=== PATIENT | male | born 1985 | race Caucasian/White ===

== ENCOUNTER 2021-01-07 09:58 | Inpatient (IN) | payer OTHER ==
[~2021-01-07] VITALS: Ht 198.1 cm; Wt 93.3 kg
[2021-01-07 11:10] LABS: COVID AG,FIA SOURCE NASOPHARYNGEAL
[2021-01-07 11:13] LABS: ANION GAP 7 mmol/L (8-16); CALCIUM, TOTAL 8.9 mg/dL (8.8-10.5); CARBON DIOXIDE 26 mmol/L (22-29); CHLORIDE 102 mmol/L (98-107); GLOMERULAR FILTR. RATE CALC > 60 mL/min (>60); GLUCOSE,RANDOM 127 mg/dL (70-110); POTASSIUM 3.9 mmol/L (3.5-5.1); SODIUM SERUM 135 mmol/L (136-145); UREA NITROGEN, BLOOD 8 mg/dL (7-18)
[2021-01-07 11:14] LABS: BASOPHILS % (AUTO) 0.4 % (0.0-2.0); EOSINOPHILS % (AUTO) 1.3 % (1.0-6.0); HEMATOCRIT 39.5 % (41-53); LYMPHOCYTES # (AUTO) 0.8 K/uL (1.0-4.8); LYMPHOCYTES % (AUTO) 18.2 % (22.0-44.0); MEAN CORPUSCULAR HEMOGLOBIN 27.4 pg (26.0-34.0); MEAN CORPUSCULAR HGB CONC 32.9 G/dL (31.0-37.0); MEAN CORPUSCULAR VOLUME 84 fL (80-100); MONOCYTES # (AUTO) 0.3 K/uL (0.1-1.0); MONOCYTES % (AUTO) 6.7 % (2.0-9.0); NEUTROPHILS # (AUTO) 3.4 K/uL (1.8-7.7); NEUTROPHILS % (AUTO) 73.4 % (40.0-70.0); PLATELET COUNT (AUTO) 198 K/uL (150-450); RED BLOOD CELL COUNT(AUTO) 4.74 MIL/uL (4.50-5.90); RED CELL DISTRIBUTION WIDTH 16.2 % (11.5-14.5)
[2021-01-07 11:18] LABS: ALANINE AMINOTRANSFERASE 19 U/L (12-78); ALBUMIN 3.6 g/dL (3.4-5.0); ALKALINE PHOSPHATASE 127 U/L (46-116); ASPARTATE AMINOTRANSFERASE 19 U/L (15-37); BILIRUBIN,TOTAL 0.3 mg/dL (0.1-1.0)
[2021-01-07] MEDS ORDERED: ACETAMINOPHEN 325 MG TABLET PO PRN (12:15)
[2021-01-07] MEDS ORDERED: LOPERAMIDE HCL 2 MG/15 ML SUSPENSION UDCUP PO PRN (15:45)
[2021-01-07] MEDS ORDERED: DICYCLOMINE HCL 10 MG CAPSULE PO PRN (15:45)
[2021-01-07] MEDS ORDERED: MAG HYDROX/AL HYDROX/SIMETH ES 30 ML SUSPENSION UDCUP PO PRN (15:45)
[2021-01-07] MEDS ORDERED: CloNIDine HCL 0.1 MG TABLET PO PRN (15:45)
[2021-01-07 16:00] VITALS: BP 125/67
[2021-01-07 17:09] VITALS: BP 129/71
[2021-01-07] MEDS: CloNIDine HCL 0.1 MG TABLET PO SCH ×2 (17:22→20:38)
[2021-01-07] MEDS: SODIUM CHLORIDE 0.45% 1,000 ML IV SCH (17:22)
[2021-01-07 19:40] VITALS: BP 123/66
[2021-01-07] MEDS: IBUPROFEN 600 MG TABLET PO PRN (20:38)
[2021-01-07] MEDS: MIRTAZAPINE 15 MG TABLET PO SCH (20:38)
[2021-01-07 21:08] VITALS: BP 133/64
[2021-01-07] MEDS: TraZODone HCL 50 MG TABLET PO PRN (21:44)
[2021-01-07] MEDS: LORazepam 1 MG TABLET PO PRN (21:44)
[2021-01-07] MEDS ORDERED: DiphenhydrAMINE HCL 50 MG/ML VIAL IM ONE (22:45)
[2021-01-07] MEDS ORDERED: HALOPERIDOL LACTATE 5 MG/ML VIAL IM ONE (22:45)
[2021-01-07] MEDS ORDERED: LORazepam 2 MG/ML VIAL IM ONE (22:45)
[2021-01-07] MEDS: HydrOXYzine PAMOATE 50 MG CAPSULE PO PRN (23:56)
[2021-01-07] MEDS: BACLOFEN 10 MG TABLET PO PRN (23:56)
[2021-01-08] MEDS: SODIUM CHLORIDE 0.45% 1,000 ML IV SCH ×2 (03:55→17:38)
[2021-01-08 04:56] VITALS: BP 133/77
[2021-01-08] MEDS: CloNIDine HCL 0.1 MG TABLET PO SCH ×4 (06:00→23:53)
[2021-01-08 08:15] VITALS: BP 134/73
[2021-01-08] MEDS: ARIPiprazole 15 MG TABLET PO SCH (08:49)
[2021-01-08 15:37] LABS: AMPHET/METH SCREEN,URINE POSITIVE (NEGATIVE); BARBITURATE SCREEN, URINE NEGATIVE (NEGATIVE); BENZODIAZEPINES SCREEN,URINE NEGATIVE (NEGATIVE); CANNABINOID SCREEN,URINE NEGATIVE (NEGATIVE); COCAINE SCREEN,URINE NEGATIVE (NEGATIVE); METHADONE SCREEN, URINE NEGATIVE (NEGATIVE); OPIATE SCREEN,URINE NEGATIVE (NEGATIVE)
[2021-01-08 15:41] LABS: PHENCYCLIDINE SCREEN,URINE NEGATIVE (NEGATIVE)
[2021-01-08 19:40] VITALS: BP 128/71
[2021-01-08] MEDS: IBUPROFEN 600 MG TABLET PO PRN (20:37)
[2021-01-08] MEDS: MIRTAZAPINE 15 MG TABLET PO SCH (20:37)
[2021-01-08] MEDS: BACLOFEN 10 MG TABLET PO PRN (20:38)
[2021-01-09] VITALS (7 sets, daily range): BP systolic 122–143; BP diastolic 58–82
[2021-01-09] MEDS: SODIUM CHLORIDE 0.45% 1,000 ML IV SCH (07:45)
[2021-01-09] MEDS: CloNIDine HCL 0.1 MG TABLET PO SCH ×4 (08:20→22:14)
[2021-01-09] MEDS: BACLOFEN 10 MG TABLET PO PRN ×2 (08:20→20:26)
[2021-01-09] MEDS: ARIPiprazole 15 MG TABLET PO SCH (08:20)
[2021-01-09] MEDS: LORazepam 1 MG TABLET PO PRN (08:22)
[2021-01-09] MEDS: QUEtiapine FUMARATE 25 MG TABLET PO PRN (17:07)
[2021-01-09] MEDS: MIRTAZAPINE 15 MG TABLET PO SCH (20:25)
[2021-01-09] MEDS: IBUPROFEN 600 MG TABLET PO PRN (20:26)
[2021-01-09] MEDS: TraZODone HCL 50 MG TABLET PO PRN (21:35)
[2021-01-09] MEDS: PROMETHAZINE HCL 25 MG TABLET PO PRN (22:14)
[2021-01-10] MEDS: PROMETHAZINE HCL 25 MG TABLET PO PRN ×2 (03:58→08:32)
[2021-01-10] MEDS: CloNIDine HCL 0.1 MG TABLET PO SCH ×4 (05:58→23:54)
[2021-01-10 06:10] VITALS: BP 137/74
[2021-01-10 06:45] LABS: BASOPHILS % (AUTO) 0.3 % (0.0-2.0); EOSINOPHILS % (AUTO) 0.5 % (1.0-6.0); HEMATOCRIT 48.2 % (41-53); LYMPHOCYTES # (AUTO) 1.2 K/uL (1.0-4.8); LYMPHOCYTES % (AUTO) 15.6 % (22.0-44.0); MEAN CORPUSCULAR HEMOGLOBIN 27.6 pg (26.0-34.0); MEAN CORPUSCULAR HGB CONC 33.2 G/dL (31.0-37.0); MEAN CORPUSCULAR VOLUME 83 fL (80-100); MONOCYTES # (AUTO) 0.5 K/uL (0.1-1.0); NEUTROPHILS % (AUTO) 76.6 % (40.0-70.0); PLATELET COUNT (AUTO) 244 K/uL (150-450); RED CELL DISTRIBUTION WIDTH 16.1 % (11.5-14.5)
[2021-01-10 07:07] LABS: ANION GAP 10 mmol/L (8-16); CALCIUM, TOTAL 9.2 mg/dL (8.8-10.5); CARBON DIOXIDE 25 mmol/L (22-29); CHLORIDE 102 mmol/L (98-107); CREATININE 0.88 mg/dL (0.60-1.30); GLOMERULAR FILTR. RATE CALC > 60 mL/min (>60); GLUCOSE,RANDOM 104 mg/dL (70-110); POTASSIUM 4.4 mmol/L (3.5-5.1); SODIUM SERUM 137 mmol/L (136-145); UREA NITROGEN, BLOOD 10 mg/dL (7-18)
[2021-01-10 08:06] VITALS: BP 128/74
[2021-01-10] MEDS: ARIPiprazole 15 MG TABLET PO SCH (08:30)
[2021-01-10] MEDS: IBUPROFEN 600 MG TABLET PO PRN ×2 (08:30→20:33)
[2021-01-10 11:34] VITALS: BP 132/75
[2021-01-10 19:50] VITALS: BP 122/70
[2021-01-10] MEDS: MIRTAZAPINE 15 MG TABLET PO SCH (20:33)
[2021-01-10 23:35] VITALS: BP 138/88
[2021-01-10] MEDS: TraZODone HCL 50 MG TABLET PO PRN (23:56)
[2021-01-11] MEDS: CloNIDine HCL 0.1 MG TABLET PO SCH ×4 (06:43→21:42)
[2021-01-11 08:00] VITALS: BP 131/76
[2021-01-11] MEDS: ARIPiprazole 15 MG TABLET PO SCH (10:23)
[2021-01-11] MEDS: ACETAMINOPHEN 325 MG TABLET PO PRN ×2 (10:28→17:26)
[2021-01-11] MEDS: IBUPROFEN 600 MG TABLET PO PRN ×2 (12:44→21:48)
[2021-01-11] MEDS: HydrOXYzine PAMOATE 50 MG CAPSULE PO PRN (12:48)
[2021-01-11] MEDS: QUEtiapine FUMARATE 25 MG TABLET PO PRN (17:26)
[2021-01-11] MEDS: MIRTAZAPINE 15 MG TABLET PO SCH (20:19)
[2021-01-11 20:44] VITALS: BP 129/82
[2021-01-11 21:52] VITALS: BP 122/75
[2021-01-12] MEDS: CloNIDine HCL 0.1 MG TABLET PO SCH ×4 (06:06→21:59)
[2021-01-12 07:29] VITALS: BP 106/65
[2021-01-12] MEDS: ARIPiprazole 15 MG TABLET PO SCH (08:09)
[2021-01-12] MEDS: ACETAMINOPHEN 325 MG TABLET PO PRN (08:49)
[2021-01-12] MEDS ORDERED: PANTOPRAZOLE SODIUM 40 MG DR TABLET PO ONE (10:00)
[2021-01-12 12:06] LABS: ANION GAP 10 mmol/L (8-16); CALCIUM, TOTAL 9.1 mg/dL (8.8-10.5); CARBON DIOXIDE 26 mmol/L (22-29); CHLORIDE 101 mmol/L (98-107); CREATININE 0.69 mg/dL (0.60-1.30); GLOMERULAR FILTR. RATE CALC > 60 mL/min (>60); GLUCOSE,RANDOM 91 mg/dL (70-110); POTASSIUM 4.7 mmol/L (3.5-5.1); SODIUM SERUM 137 mmol/L (136-145); UREA NITROGEN, BLOOD 13 mg/dL (7-18)
[2021-01-12 12:14] LABS: ALANINE AMINOTRANSFERASE 45 U/L (12-78); ALBUMIN 3.8 g/dL (3.4-5.0); ALKALINE PHOSPHATASE 123 U/L (46-116); ASPARTATE AMINOTRANSFERASE 25 U/L (15-37); BILIRUBIN,TOTAL 0.2 mg/dL (0.1-1.0); TOTAL PROTEIN, SERUM 8.7 g/dL (6.4-8.2)
[2021-01-12] MEDS ORDERED: SODIUM CHLORIDE 0.9% 250 ML IV ONE (13:24)
[2021-01-12 16:02] VITALS: BP 110/68
[2021-01-12] MEDS: IBUPROFEN 600 MG TABLET PO PRN (16:09)
[2021-01-12 20:08] VITALS: BP 107/65
[2021-01-12] MEDS: MIRTAZAPINE 15 MG TABLET PO SCH (21:59)
[2021-01-13] MEDS: CloNIDine HCL 0.1 MG TABLET PO SCH (05:25)
[2021-01-13 05:33] VITALS: BP 126/69
[2021-01-13 07:47] VITALS: BP 117/72
[2021-01-13] MEDS ORDERED: ARIP15TA27 PO (10:25)
[2021-01-13] MEDS ORDERED: CLON0.1T PO (10:25)
[2021-01-13] MEDS ORDERED: MIRT-89 PO (10:26)
[2021-01-13] MEDS ORDERED: CLON0.1T2 PO (10:26)
[2021-01-13] MEDS: ARIPiprazole 15 MG TABLET PO SCH (10:49)
[2021-01-13] MEDS: ACETAMINOPHEN 325 MG TABLET PO PRN (10:50)
[2021-01-13] MEDS ORDERED: OXYC60TA7 PO (22:20)
== END 2021-01-13 11:20 | DRG 897 ==
LOC: EMS 10:08 → 6S 13:52 → 5S 01-12 12:15
PROVIDERS: ADMIT Hospitalist; ATTEND Hospitalist
DX: F11.23 Opioid dependence with withdrawal (principal); F17.200 Nicotine dependence, unspecified, uncomplicated; J45.909 Unspecified asthma, uncomplicated; F41.9 Anxiety disorder, unspecified; G89.4 Chronic pain syndrome; Z20.822 Contact with and (suspected) exposure to COVID-19
CPT/HCPCS: 71045; 80048; 80053; 84484; 85025; 93005; 93306; 93970; 99285; G0480; J1200; J1630; J2060; J7050; 36415-L1; 36415-TC

== ENCOUNTER 2021-01-13 22:00 | Inpatient (IN) | payer OTHER ==
[~2021-01-13] VITALS: Ht 198.1 cm; Wt 95.2 kg
[~2021-01-13 22:00] MED LIST: ARIP15TA27 PO; CLON0.1T PO; CLON0.1T2 PO; MIRT-89 PO
[2021-01-13] MEDS ORDERED: OXYC60TA7 PO (22:20)
[2021-01-13] MEDS ORDERED: ZOLPIDEM TARTRATE 5 MG TABLET PO PRN (23:15)
[2021-01-13] MEDS ORDERED: ONDANSETRON HCL 4 MG/2 ML VIAL IVP PRN (23:15)
[2021-01-13] MEDS ORDERED: MAGNESIUM HYDROXIDE SUSPENSION 30 ML UDCUP PO PRN (23:15)
[2021-01-13 23:16] LABS: BASOPHILS % (AUTO) 0.9 % (0.0-2.0); EOSINOPHILS % (AUTO) 1.2 % (1.0-6.0); HEMATOCRIT 45.5 % (41-53); HEMOGLOBIN 14.9 g/dL (13.5-17.5); LYMPHOCYTES # (AUTO) 2.3 K/uL (1.0-4.8); LYMPHOCYTES % (AUTO) 25.6 % (22.0-44.0); MEAN CORPUSCULAR HEMOGLOBIN 27.5 pg (26.0-34.0); MEAN CORPUSCULAR HGB CONC 32.7 G/dL (31.0-37.0); MEAN CORPUSCULAR VOLUME 84 fL (80-100); MONOCYTES # (AUTO) 0.8 K/uL (0.1-1.0); MONOCYTES % (AUTO) 8.6 % (2.0-9.0); NEUTROPHILS # (AUTO) 5.7 K/uL (1.8-7.7); NEUTROPHILS % (AUTO) 63.7 % (40.0-70.0); PLATELET COUNT (AUTO) 220 K/uL (150-450); RED BLOOD CELL COUNT(AUTO) 5.41 MIL/uL (4.50-5.90); RED CELL DISTRIBUTION WIDTH 16.3 % (11.5-14.5)
[2021-01-13 23:26] LABS: ANION GAP 7 mmol/L (8-16); CALCIUM, TOTAL 8.6 mg/dL (8.8-10.5); CARBON DIOXIDE 31 mmol/L (22-29); CHLORIDE 104 mmol/L (98-107); CREATININE 0.94 mg/dL (0.60-1.30); GLOMERULAR FILTR. RATE CALC > 60 mL/min (>60); GLUCOSE,RANDOM 92 mg/dL (70-110); SODIUM SERUM 142 mmol/L (136-145); UREA NITROGEN, BLOOD 12 mg/dL (7-18)
[2021-01-13 23:32] LABS: ALANINE AMINOTRANSFERASE 40 U/L (12-78); ALBUMIN 3.5 g/dL (3.4-5.0); ALKALINE PHOSPHATASE 124 U/L (46-116); ASPARTATE AMINOTRANSFERASE 15 U/L (15-37); BILIRUBIN,TOTAL 0.3 mg/dL (0.1-1.0); TOTAL PROTEIN, SERUM 8.3 g/dL (6.4-8.2)
[2021-01-14 00:35] LABS: COVID AG,FIA SOURCE NASOPHARYNGEAL
[2021-01-14 07:52] VITALS: BP 144/81
[2021-01-14] MEDS: ACETAMINOPHEN 325 MG TABLET PO PRN ×2 (08:01→15:00)
[2021-01-14] MEDS ORDERED: FAMOTIDINE 20 MG TABLET PO SCH (09:00)
[2021-01-14 12:59] VITALS: BP 141/86
[2021-01-14 16:00] VITALS: BP 123/76
[2021-01-14] MEDS ORDERED: QUEtiapine FUMARATE 25 MG TABLET PO ONE (18:45)
[2021-01-14 23:53] VITALS: BP 135/78
[2021-01-15 04:45] VITALS: BP 145/95
== END 2021-01-15 07:40 | DRG 897 ==
LOC: EMS 22:00 → 6S 23:04
PROVIDERS: ADMIT Internal Medicine; ATTEND Internal Medicine
DX: F11.23 Opioid dependence with withdrawal (principal); R45.851 Suicidal ideations; F32.9 Major depressive disorder, single episode, unspecified; J45.909 Unspecified asthma, uncomplicated; Z87.891 Personal history of nicotine dependence; Z20.822 Contact with and (suspected) exposure to COVID-19
CPT/HCPCS: 80053; 84484; 85025; 93005; 99285; G0480

== ENCOUNTER 2021-01-19 20:23 | Inpatient (IN) | payer OTHER ==
[~2021-01-19] VITALS: Ht 198.1 cm; Wt 97.2 kg
[2021-01-19 23:01] LABS: COVID AG,FIA SOURCE NASOPHARYNGEAL
[2021-01-19 23:01] LABS: BASOPHILS % (AUTO) 0.5 % (0.0-2.0); EOSINOPHILS % (AUTO) 1.8 % (1.0-6.0); HEMATOCRIT 42.4 % (41-53); HEMOGLOBIN 14.1 g/dL (13.5-17.5); LYMPHOCYTES # (AUTO) 1.3 K/uL (1.0-4.8); LYMPHOCYTES % (AUTO) 17.6 % (22.0-44.0); MEAN CORPUSCULAR HEMOGLOBIN 27.8 pg (26.0-34.0); MEAN CORPUSCULAR HGB CONC 33.2 G/dL (31.0-37.0); MEAN CORPUSCULAR VOLUME 84 fL (80-100); MONOCYTES # (AUTO) 0.4 K/uL (0.1-1.0); MONOCYTES % (AUTO) 5.8 % (2.0-9.0); NEUTROPHILS # (AUTO) 5.5 K/uL (1.8-7.7); NEUTROPHILS % (AUTO) 74.3 % (40.0-70.0); PLATELET COUNT (AUTO) 224 K/uL (150-450); RED BLOOD CELL COUNT(AUTO) 5.05 MIL/uL (4.50-5.90)
[2021-01-19 23:11] LABS: AMPHET/METH SCREEN,URINE NEGATIVE (NEGATIVE); BARBITURATE SCREEN, URINE NEGATIVE (NEGATIVE); BENZODIAZEPINES SCREEN,URINE NEGATIVE (NEGATIVE); CANNABINOID SCREEN,URINE NEGATIVE (NEGATIVE); COCAINE SCREEN,URINE NEGATIVE (NEGATIVE); METHADONE SCREEN, URINE NEGATIVE (NEGATIVE); OPIATE SCREEN,URINE NEGATIVE (NEGATIVE); PHENCYCLIDINE SCREEN,URINE NEGATIVE (NEGATIVE)
[2021-01-19 23:16] LABS: ANION GAP 12 mmol/L (8-16); CARBON DIOXIDE 26 mmol/L (22-29); CHLORIDE 103 mmol/L (98-107); GLUCOSE,RANDOM 122 mg/dL (70-110); POTASSIUM 3.1 mmol/L (3.5-5.1); SODIUM SERUM 141 mmol/L (136-145)
[2021-01-19 23:17] LABS: ALANINE AMINOTRANSFERASE 22 U/L (12-78); ALBUMIN 3.4 g/dL (3.4-5.0); ALKALINE PHOSPHATASE 108 U/L (46-116); ASPARTATE AMINOTRANSFERASE 11 U/L (15-37); BILIRUBIN,TOTAL 0.2 mg/dL (0.1-1.0); CREATININE 0.72 mg/dL (0.60-1.30); GLOMERULAR FILTR. RATE CALC > 60 mL/min (>60); TOTAL PROTEIN, SERUM 7.5 g/dL (6.4-8.2); UREA NITROGEN, BLOOD 9 mg/dL (7-18)
[2021-01-19 23:21] LABS: CALCIUM, TOTAL 8.3 mg/dL (8.8-10.5)
[2021-01-20] MEDS ORDERED: POTASSIUM CHLORIDE 20 MEQ ER TABLET PO ONE (00:45)
[2021-01-20 01:15] LABS: ACETAMINOPHEN < 2 mcg/mL (10-30); SALICYLATE 1.5 mg/dL (2.8-20.0)
[2021-01-20 01:30] VITALS: BP 123/83
[2021-01-20] MEDS: MELATONIN 3 MG TABLET PO PRN ×2 (03:28→21:05)
[2021-01-20 04:15] VITALS: BP 127/79
[2021-01-20 07:59] VITALS: BP 118/71
[2021-01-20] MEDS ORDERED: POTASSIUM CHL 10 MEQ/WATER 50 ML IV PRN (08:15)
[2021-01-20] MEDS ORDERED: POTASSIUM CHLORIDE 20 MEQ ER TABLET PO PRN (08:15)
[2021-01-20] MEDS: SERTRALINE HCL 50 MG TABLET PO SCH (09:45)
[2021-01-20] MEDS: HydrOXYzine PAMOATE 50 MG CAPSULE PO PRN (18:03)
[2021-01-20] MEDS: ACETAMINOPHEN 325 MG TABLET PO PRN (18:04)
[2021-01-20 20:10] VITALS: BP 127/69
[2021-01-21 04:00] VITALS: BP 134/70
[2021-01-21] MEDS: SERTRALINE HCL 50 MG TABLET PO SCH (07:55)
[2021-01-21] MEDS: HydrOXYzine PAMOATE 50 MG CAPSULE PO PRN ×3 (07:56→20:27)
[2021-01-21 08:00] VITALS: BP 148/93
[2021-01-21 20:20] VITALS: BP 144/85
[2021-01-21] MEDS: MELATONIN 3 MG TABLET PO PRN (20:28)
[2021-01-22] MEDS: HydrOXYzine PAMOATE 50 MG CAPSULE PO PRN ×4 (03:23→20:19)
[2021-01-22 03:27] VITALS: BP 137/81
[2021-01-22 08:15] VITALS: BP 126/78
[2021-01-22] MEDS: SERTRALINE HCL 50 MG TABLET PO SCH (08:18)
[2021-01-22] MEDS: ACETAMINOPHEN 325 MG TABLET PO PRN ×2 (14:33→20:22)
[2021-01-22 20:05] VITALS: BP 131/79
[2021-01-22] MEDS: MELATONIN 3 MG TABLET PO PRN (20:18)
[2021-01-23] MEDS: HydrOXYzine PAMOATE 50 MG CAPSULE PO PRN ×4 (03:17→17:58)
[2021-01-23 05:00] VITALS: BP 141/85
[2021-01-23] MEDS: SERTRALINE HCL 50 MG TABLET PO SCH (08:13)
[2021-01-23 08:22] VITALS: BP 115/71
[2021-01-23] MEDS: ACETAMINOPHEN 325 MG TABLET PO PRN ×2 (11:01→18:00)
[2021-01-23 19:55] VITALS: BP 131/86
[2021-01-23] MEDS: MELATONIN 3 MG TABLET PO PRN (22:05)
[2021-01-24] MEDS: HydrOXYzine PAMOATE 50 MG CAPSULE PO PRN ×4 (01:35→20:33)
[2021-01-24 03:32] VITALS: BP 125/79
[2021-01-24] MEDS: SERTRALINE HCL 50 MG TABLET PO SCH (08:21)
[2021-01-24] MEDS: ACETAMINOPHEN 325 MG TABLET PO PRN ×2 (14:28→20:33)
[2021-01-24 20:11] VITALS: BP 142/71
[2021-01-24] MEDS: MELATONIN 3 MG TABLET PO PRN (20:32)
[2021-01-25] MEDS: HydrOXYzine PAMOATE 50 MG CAPSULE PO PRN ×2 (04:54→10:14)
[2021-01-25 04:56] VITALS: BP 123/71
[2021-01-25 07:28] VITALS: BP 120/67
[2021-01-25] MEDS: ACETAMINOPHEN 325 MG TABLET PO PRN (09:02)
[2021-01-25] MEDS: SERTRALINE HCL 50 MG TABLET PO SCH (09:02)
[2021-01-25] MEDS ORDERED: SERT-158 PO (10:42)
[2021-01-25] MEDS ORDERED: ACET-2247 PO (10:43)
== END 2021-01-25 11:58 | DRG 885 ==
LOC: EMS 20:25 → 6S 01-20 01:00
PROVIDERS: ADMIT Internal Medicine; ATTEND Internal Medicine
DX: F33.2 Major depressive disorder, recurrent severe without psychotic features (principal); R45.851 Suicidal ideations; Z20.822 Contact with and (suspected) exposure to COVID-19; J45.909 Unspecified asthma, uncomplicated; Z87.891 Personal history of nicotine dependence; F41.9 Anxiety disorder, unspecified
CPT/HCPCS: 80053; 84132; 85025; 87081; 99285; G0480; G0481

== ENCOUNTER 2023-07-05 21:30 | Inpatient (IN) | payer OTHER ==
[~2023-07-05] VITALS: Ht 198.1 cm; Wt 90.0 kg
[~2023-07-05 21:30] MED LIST changes: +ACET-2247 PO; -ARIP15TA27 PO; -CLON0.1T PO; -CLON0.1T2 PO; -MIRT-89 PO; +SERT-158 PO
[2023-07-05 23:23] LABS: BASOPHILS % (AUTO) 1.1 % (0.0-2.0); EOSINOPHILS % (AUTO) 4.3 % (1.0-6.0); HEMATOCRIT 30.8 % (41-53); HEMOGLOBIN 10.3 g/dL (13.5-17.5); LYMPHOCYTES # (AUTO) 2.3 K/uL (1.0-4.8); LYMPHOCYTES % (AUTO) 32.3 % (22.0-44.0); MEAN CORPUSCULAR HEMOGLOBIN 28.7 pg (26.0-34.0); MEAN CORPUSCULAR HGB CONC 33.6 G/dL (31.0-37.0); MEAN CORPUSCULAR VOLUME 86 fL (80-100); MONOCYTES # (AUTO) 0.6 K/uL (0.1-1.0); MONOCYTES % (AUTO) 8.5 % (2.0-9.0); NEUTROPHILS # (AUTO) 3.9 K/uL (1.8-7.7); NEUTROPHILS % (AUTO) 53.8 % (40.0-70.0); RED CELL DISTRIBUTION WIDTH 14.7 % (11.5-14.5); WHITE BLOOD COUNT (AUTO) 7.2 K/uL (4.5-11.0)
[2023-07-05 23:29] LABS: ANION GAP 10 mmol/L (8-16); CARBON DIOXIDE 28 mmol/L (22-29); CHLORIDE 103 mmol/L (98-107); CREATININE 0.95 mg/dL (0.60-1.30); GLOMERULAR FILTR. RATE CALC > 60 mL/min (>60); GLUCOSE,RANDOM 96 mg/dL (70-110); POTASSIUM 3.9 mmol/L (3.5-5.1); SODIUM SERUM 141 mmol/L (136-145); UREA NITROGEN, BLOOD 11 mg/dL (7-18)
[2023-07-05 23:35] LABS: ALANINE AMINOTRANSFERASE 23 U/L (12-78); ALKALINE PHOSPHATASE 86 U/L (46-116); ASPARTATE AMINOTRANSFERASE 15 U/L (15-37); BILIRUBIN,TOTAL 0.2 mg/dL (0.1-1.0); LIPASE 16 U/L (16-77); TOTAL PROTEIN, SERUM 7.6 g/dL (6.4-8.2)
[2023-07-05 23:36] LABS: ALCOHOL, BLOOD (SERUM) < 3 mg/dL (0-10)
[2023-07-05 23:39] LABS: COVID AG,FIA SOURCE NASAL SWAB
[2023-07-05 23:48] LABS: PLATELET COUNT (AUTO) 220 K/uL (150-450)
[2023-07-05 23:55] LABS: SARS-COV2 (COVID) ANTIGEN,FIA Negative (Negative)
[2023-07-06 00:16] LABS: LACTIC ACID < 0.3 mmol/L (0.4-2.0)
[2023-07-06 00:58] VITALS: BP 114/72; PULSE 102; RESP 18
[2023-07-06] MEDS ORDERED: 0.9% SODIUM CHLORIDE 10 ML SYRINGE IVP PRN (02:15)
[2023-07-06] MEDS ORDERED: MAGNESIUM HYDROXIDE SUSPENSION 30 ML UDCUP PO PRN (02:15)
[2023-07-06] MEDS ORDERED: MAG HYDROX/ALUMINUM HYD/SIMETH ES 30 ML SUSPENSION UDCUP PO PRN (02:15)
[2023-07-06] MEDS ORDERED: ONDANSETRON HCL 4 MG/2 ML VIAL IVP PRN (02:15)
[2023-07-06] MEDS ORDERED: ACETAMINOPHEN 325 MG TABLET PO PRN (02:15)
[2023-07-06 05:10] VITALS: BP 134/81; PULSE 87; RESP 18; TEMP 98
[2023-07-06] MEDS: CloNIDine HCL 0.1 MG TABLET PO SCH ×4 (05:21→20:58)
[2023-07-06 08:02] VITALS: BP 134/78; PULSE 93; RESP 19; TEMP 98
[2023-07-06] MEDS: PANTOPRAZOLE SODIUM 40 MG/VIAL IVP SCH (08:25)
[2023-07-06] MEDS: DOCUSATE SODIUM 100 MG CAPSULE PO SCH ×2 (08:25→20:58)
[2023-07-06] MEDS: HEPARIN SODIUM,PORCINE 5,000 UNITS/ML VIAL SQ SCH ×2 (08:25→20:59)
[2023-07-06 10:45] LABS: APPEARANCE,URINE CLEAR (CLEAR); BILIRUBIN,URINE NEGATIVE (NEGATIVE); COLOR,URINE COLORLESS (YELLOW); GLUCOSE, URINE (UA) NEGATIVE (NEGATIVE); KETONES,URINE NEGATIVE (NEGATIVE); LEUKOCYTE ESTERASE ,URINE NEGATIVE (NEGATIVE); NITRATE,URINE NEGATIVE (NEGATIVE); OCCULT BLOOD,URINE NEGATIVE (NEGATIVE); PH,URINE 7.5 (5.0-8.0); PH,URINE DRUG SCREEN 7.5 (5.0-8.0); PROTEIN,URINE NEGATIVE (NEGATIVE); SPECIFIC GRAVITIY, URINE 1.009 (1.003-1.030); UROBILINOGEN,URINE <=1.0 mg/dL (<=1.0)
[2023-07-06 10:50] LABS: ALCOHOL, URINE DRUG SCREEN NEGATIVE (NEGATIVE); AMPHET/METH SCREEN,URINE POSITIVE (NEGATIVE); BARBITURATE SCREEN, URINE NEGATIVE (NEGATIVE); BENZODIAZEPINES SCREEN,URINE NEGATIVE (NEGATIVE); CANNABINOID SCREEN,URINE POSITIVE (NEGATIVE); COCAINE SCREEN,URINE NEGATIVE (NEGATIVE); METHADONE SCREEN, URINE NEGATIVE (NEGATIVE); OPIATE SCREEN,URINE NEGATIVE (NEGATIVE); PHENCYCLIDINE SCREEN,URINE NEGATIVE (NEGATIVE)
[2023-07-06 11:34] LABS: BACTERIA,URINE None Seen /HPF (None Seen); RBC,URINE None Seen /HPF (0-2); WBC,URINE 0-2 /HPF (0-5)
[2023-07-06 15:15] VITALS: BP 118/60; PULSE 93; RESP 19; TEMP 97.9
[2023-07-06 19:30] VITALS: BP 145/97; PULSE 93; RESP 19; TEMP 99.1
[2023-07-06] MEDS: HydrOXYzine PAMOATE 50 MG CAPSULE PO PRN (20:55)
[2023-07-06] MEDS: CloNIDine HCL 0.1 MG TABLET PO PRN (20:56)
[2023-07-06] MEDS: IBUPROFEN 600 MG TABLET PO PRN (20:56)
[2023-07-07 05:10] VITALS: BP 148/82; PULSE 77; RESP 18; TEMP 98.1
[2023-07-07] MEDS: CloNIDine HCL 0.1 MG TABLET PO SCH ×4 (06:34→20:21)
[2023-07-07 07:07] LABS: BASOPHILS % (AUTO) 0.6 % (0.0-2.0); HEMATOCRIT 35.8 % (41-53); HEMOGLOBIN 12.7 g/dL (13.5-17.5); LYMPHOCYTES # (AUTO) 1.3 K/uL (1.0-4.8); LYMPHOCYTES % (AUTO) 22.5 % (22.0-44.0); MEAN CORPUSCULAR HEMOGLOBIN 30.2 pg (26.0-34.0); MEAN CORPUSCULAR HGB CONC 35.6 G/dL (31.0-37.0); MEAN CORPUSCULAR VOLUME 85 fL (80-100); MONOCYTES # (AUTO) 0.4 K/uL (0.1-1.0); MONOCYTES % (AUTO) 6.1 % (2.0-9.0); NEUTROPHILS # (AUTO) 4.1 K/uL (1.8-7.7); NEUTROPHILS % (AUTO) 69.8 % (40.0-70.0); PLATELET COUNT (AUTO) 252 K/uL (150-450); RED BLOOD CELL COUNT(AUTO) 4.22 MIL/uL (4.50-5.90); RED CELL DISTRIBUTION WIDTH 14.7 % (11.5-14.5); WHITE BLOOD COUNT (AUTO) 5.9 K/uL (4.5-11.0)
[2023-07-07 07:17] LABS: ANION GAP 10 mmol/L (8-16); CALCIUM, TOTAL 9.8 mg/dL (8.8-10.5); CARBON DIOXIDE 25 mmol/L (22-29); CHLORIDE 100 mmol/L (98-107); CREATININE 1.02 mg/dL (0.60-1.30); GLOMERULAR FILTR. RATE CALC > 60 mL/min (>60); GLUCOSE,RANDOM 98 mg/dL (70-110); POTASSIUM 4.2 mmol/L (3.5-5.1); SODIUM SERUM 135 mmol/L (136-145); UREA NITROGEN, BLOOD 7 mg/dL (7-18)
[2023-07-07] MEDS: DOCUSATE SODIUM 100 MG CAPSULE PO SCH ×2 (08:18→20:20)
[2023-07-07] MEDS: HEPARIN SODIUM,PORCINE 5,000 UNITS/ML VIAL SQ SCH ×2 (08:18→20:27)
[2023-07-07] MEDS: IBUPROFEN 600 MG TABLET PO PRN ×2 (08:20→20:20)
[2023-07-07 08:25] VITALS: BP 119/75; PULSE 84; RESP 20; TEMP 98.4
[2023-07-07] MEDS: PANTOPRAZOLE SODIUM 40 MG/VIAL IVP SCH (09:00)
[2023-07-07] MEDS: HydrOXYzine PAMOATE 50 MG CAPSULE PO PRN ×2 (10:34→20:20)
[2023-07-07] MEDS ORDERED: LORazepam 2 MG/ML VIAL IM PRN (13:30)
[2023-07-07 15:30] VITALS: BP 126/78; PULSE 82; RESP 20; TEMP 98.1
[2023-07-07] MEDS: CloNIDine HCL 0.1 MG TABLET PO PRN (20:21)
[2023-07-07 20:23] VITALS: BP 122/75; PULSE 89; RESP 20; TEMP 98.9
[2023-07-07] MEDS ORDERED: METHADONE HCL 10 MG TABLET PO SCH (21:00)
[2023-07-08] MEDS: CloNIDine HCL 0.1 MG TABLET PO PRN (02:30)
[2023-07-08] MEDS: HydrOXYzine PAMOATE 50 MG CAPSULE PO PRN (02:30)
[2023-07-08] MEDS: IBUPROFEN 600 MG TABLET PO PRN (02:30)
[2023-07-08 05:44] VITALS: BP 126/79; PULSE 88; RESP 18; TEMP 98.3
[2023-07-08] MEDS: HEPARIN SODIUM,PORCINE 5,000 UNITS/ML VIAL SQ SCH ×2 (08:45→21:42)
[2023-07-08] MEDS: PANTOPRAZOLE SODIUM 40 MG DR TABLET PO SCH (08:45)
[2023-07-08] MEDS: DOCUSATE SODIUM 100 MG CAPSULE PO SCH ×2 (08:45→21:42)
[2023-07-08 09:52] VITALS: BP 129/86; PULSE 88; RESP 18; TEMP 98.3
[2023-07-08] MEDS: CloNIDine HCL 0.1 MG TABLET PO SCH ×3 (12:07→21:42)
[2023-07-08 21:14] VITALS: BP 120/65; PULSE 95; RESP 20; TEMP 98.6
[2023-07-09 05:42] VITALS: BP 118/85; PULSE 100; RESP 18; TEMP 98.8
[2023-07-09] MEDS: CloNIDine HCL 0.1 MG TABLET PO SCH ×4 (05:45→22:13)
[2023-07-09] MEDS: PANTOPRAZOLE SODIUM 40 MG DR TABLET PO SCH (08:22)
[2023-07-09] MEDS: DOCUSATE SODIUM 100 MG CAPSULE PO SCH (08:22)
[2023-07-09] MEDS: HEPARIN SODIUM,PORCINE 5,000 UNITS/ML VIAL SQ SCH ×2 (08:22→22:13)
[2023-07-09 10:44] VITALS: BP 120/54; PULSE 99; RESP 18; TEMP 98.5
[2023-07-09] MEDS ORDERED: LORazepam 1 MG TABLET PO PRN (13:00)
[2023-07-09] MEDS ORDERED: ACETAMINOPHEN 325 MG TABLET PO PRN (13:00)
[2023-07-09] MEDS ORDERED: BACLOFEN 10 MG TABLET PO PRN (13:00)
[2023-07-09] MEDS ORDERED: LOPERAMIDE HCL 2 MG/15 ML SUSPENSION UDCUP PO PRN (13:00)
[2023-07-09] MEDS ORDERED: MAG HYDROX/ALUMINUM HYD/SIMETH ES 30 ML SUSPENSION UDCUP PO PRN (13:00)
[2023-07-09] MEDS ORDERED: HydrOXYzine PAMOATE 50 MG CAPSULE PO PRN (13:00)
[2023-07-09] MEDS ORDERED: TraZODone HCL 50 MG TABLET PO PRN (13:00)
[2023-07-09] MEDS ORDERED: IBUPROFEN 600 MG TABLET PO PRN (13:00)
[2023-07-09] MEDS ORDERED: DICYCLOMINE HCL 10 MG CAPSULE PO PRN (13:00)
[2023-07-09] MEDS ORDERED: PROMETHAZINE HCL 25 MG TABLET PO PRN (13:00)
[2023-07-09] MEDS: SODIUM CHLORIDE 0.45% 1,000 ML IV SCH (16:43)
[2023-07-09 17:25] VITALS: BP 135/90; PULSE 83; RESP 18; TEMP 97.7; O2SAT 98
[2023-07-09 17:27] VITALS: BP 135/90; PULSE 83; RESP 18
[2023-07-09 20:25] VITALS: BP 103/59; PULSE 81; RESP 20; TEMP 98.4
[2023-07-10] MEDS: SODIUM CHLORIDE 0.45% 1,000 ML IV SCH (02:34)
[2023-07-10 05:20] VITALS: BP 126/80; PULSE 82; RESP 20; TEMP 98.5
[2023-07-10] MEDS: CloNIDine HCL 0.1 MG TABLET PO SCH ×3 (06:07→17:03)
[2023-07-10] MEDS: PANTOPRAZOLE SODIUM 40 MG DR TABLET PO SCH (08:57)
[2023-07-10] MEDS: HEPARIN SODIUM,PORCINE 5,000 UNITS/ML VIAL SQ SCH (08:57)
[2023-07-10 09:19] VITALS: BP 127/70; PULSE 78; RESP 19; TEMP 98.7
[2023-07-10] MEDS ORDERED: CLON0.1T2 PO (11:39)
[2023-07-10 11:59] VITALS: BP 124/78; PULSE 90; RESP 18; TEMP 98.2
[2023-07-10 17:05] VITALS: BP 128/78; PULSE 95; RESP 19; TEMP 98.3
== END 2023-07-10 19:46 | DRG 896 ==
LOC: EMS 21:31 → 6S 23:53
PROVIDERS: ADMIT Internal Medicine; ATTEND Internal Medicine
DX: F11.13 Opioid abuse with withdrawal (principal); E43 Unspecified severe protein-calorie malnutrition; F15.10 Other stimulant abuse, uncomplicated; F12.10 Cannabis abuse, uncomplicated; D64.9 Anemia, unspecified; G89.29 Other chronic pain; Z20.822 Contact with and (suspected) exposure to COVID-19; F43.21 Adjustment disorder with depressed mood; Z91.51 Personal history of suicidal behavior; Z68.22 Body mass index [BMI] 22.0-22.9, adult
CPT/HCPCS: 80048; 80053; 80307; 81001; 83605; 83690; 85025; 99285; C9113; G0480; J1644; J2060